=== PATIENT | female | born 1935 | race Caucasian/White ===

== ENCOUNTER 2017-04-22 21:03 | Emergency (ER) | payer MEDICARE, BC ==
--- NOTE | ~2017-04-22 | EKG ---
PATIENT: PRANAY CUNNINGHAM UNIT #: [id number] Ventricular Rate: 62 BPM Atrial Rate: 62 BPM P-R Interval: 212 ms QRS Duration: 100 ms Q-T Interval: 450 ms QTC Calculation(Bezet): 456 ms P Crowder: 83 degrees Calculated R Crowder: -20 degrees Calculated T Crowder: 27 degrees Diagnosis Line: Unusual P axis, possible ectopic atrial rhythm Diagnosis Line: Nonspecific ST and T wave abnormality Diagnosis Line: Abnormal ECG Diagnosis Line: No previous ECGs available Diagnosis Line: Confirmed by LUCHO GREEN MD ([id number]) on Diagnosis Line: 04/23/2017 9:16:16 PM INTERPRETING MD: ILEANA
--- NOTE | ~2017-04-22 | CR72 ---
[facility] A Service of [facility] & [facility] RADIOLOGY TEXT RESULTS PATIENT: PRANAY CUNNINGHAM LOCATION: [facility] : 31 UNIT #: [id number] AGE: [address]: Sharon Foss MD SEX: F ORDER DR: [id number] [facility] [address] [place], [place] [address] [id number] E MR#: [id number] Acc #: [id number] NAME: PRANAY CUNNINGHAM : 1935 SEX: F STUDY DATE/TIME: 04/23/2017 0:20 UNIT: [facility] ROOM: STUDY DESCRIPTION: CR Chest Single View Portable Attending Physician: Sharon Foss M.D. Ordering Physician: Sharon Foss M.D. Primary Care Physician: No Primary Care Physician MEDICAL IMAGING REPORT This report is preliminary unless electronic signature is present EXAM Portable chest. HISTORY Shortness of air for 1 day with fever. COMPARISON 07/28/2016 FINDINGS A portable view of the chest was obtained. Heart size and vascularity are normal and the lungs are clear. There is dextroscoliosis. IMPRESSION No active disease. Dictated by... Abelino Quiroz M.D. THIS IS AN ELECTRONICALLY VERIFIED REPORT Abelino Quiroz M.D. at 04/23/2017 1:22 PM REJI/maci TD: 04/23/2017 09:56 JOB #: [id number] MEDICAL IMAGING REPORT Page 1 of 1 COPY
[2017-04-23 00:09] LABS: BASOPHIL# 0.1 X10e3 (0-0.3); BASOPHIL% 0.4 % (0-2.5); DIFF IND YES; HEMATOCRIT 43.8 % (35.0-45.0); HEMOGLOBIN 14.3 gm/dL (12.0-16.0); LYMPHOCYTE# 0.6 X10e3 (1.0-3.5); LYMPHOCYTE% 3.8 % (17.0-45.0); MEAN CORPUSCULAR HEMOGLOBIN 31.3 PG (28-34); MEAN CORPUSCULAR HGB CONC 32.6 g/dL (30-36); MEAN PLATELET VOLUME 8.8 FL (6.5-11.5); MONOCYTE# 1.6 X10e3 (0-1.0); MONOCYTE% 9.4 % (3.0-12.0); NEUTROPHIL# 14.6 X10e3 (1.5-7.1); NEUTROPHIL% 86.4 % (40-75); PLATELET COUNT 189 X10e3 (140-420); RED BLOOD COUNT 4.56 X10e (3.90-5.30); RED CELL DISTRIBUTION WIDTH 13.3 % (11.0-15.5); WHITE BLOOD COUNT 16.9 X10e3 (4.0-10.5)
[2017-04-23 00:29] LABS: ALBUMIN SERUM 3.7 g/dL (3.5-5.0); BILIRUBIN, DIRECT 0.1 mg/dL (0.0-0.2); BILIRUBIN,INDIRECT 0.4 mg/dL (0.0-0.9); BILIRUBIN,TOTAL 0.5 mg/dL (0.2-2.0); BUN/CREATININE RATIO 28.33; CALCIUM SERUM 9.1 mg/dL (8.4-10.2); CREATININE SERUM 0.6 mg/dL (0.6-1.4); GLOM FILT RATE Estimated 84.3 mL/min (>60); POTASSIUM 3.5 mmol/L (3.5-5.1); PROTEIN TOTAL SERUM 6.7 g/dL (6.0-8.3)
[2017-04-23 00:33] LABS: PLATELET ESTIMATE DECREASED (NORMAL)
[2017-04-23 00:35] LABS: STOMATOCYTE PRESENT
[2017-04-23 01:02] LABS: URINE SOURCE CLEAN CATCH
[2017-04-23 01:07] LABS: URINE APPEARANCE CLEAR; URINE BILIRUBIN NEG (NEG); URINE BLOOD TRACE (NEG); URINE COLOR YELLOW; URINE GLUCOSE NEG (NEG); URINE KETONE NEG (NEG); URINE LEUKOCYTE ESTERASE 1+ (NEG); URINE NITRATE NEG (NEG); URINE PH 5.5 (5-8); URINE PROTEIN TRACE (NEG); URINE SPECIFIC GRAVITY 1.022 (1.003-1.035)
[2017-04-23 01:09] LABS: CULTURE INDICATED? YES; URINE BACTERIA AUWI NEG (NEGATIVE); URINE SQUAMOUS EPITHELIAL CELL NONE SEEN /[HPF]
== END 2017-04-23 03:00 | disposition home or self-care (01) ==
LOC: CED 21:03
DX: R50.9 Fever, unspecified (principal); R53.1 Weakness; E03.9 Hypothyroidism, unspecified; Z85.048 Personal history of other malignant neoplasm of rectum, rectosigmoid junction, and anus
CPT/HCPCS: 71010; 80048; 80076; 81003; 83605; 83880; 85025; 87040; 87086; 93005; 99285